=== PATIENT | female | born 1955 | race African-American/Black ===

== ENCOUNTER 2016-03-29 11:24 | Day surgery (SDC) | payer MEDICARE, OTHER ==
[~2016-03-29] VITALS: Ht 170.2 cm; Wt 87.3 kg
[~2016-03-29 11:24] MED LIST: AMLO1CAP33 PO; AMLO5TAB4 PO; DOCU-144 PO; ESOM40CA PO; IBUP800T25 PO; MIRT15TA5 PO
[2016-03-29 12:03] VITALS: Ht 170.2 cm; Wt 87.3 kg
[2016-03-29] MEDS ORDERED: VENTOLIN (12:13)
[2016-03-29] MEDS ORDERED: PRILOSEC (12:13)
[2016-03-29] MEDS ORDERED: FENTAnyl 50 MCG/ML VIAL ONE (12:22)
[2016-03-29] MEDS ORDERED: PROPOFOL 20 ML ONE (12:22)
[2016-03-29] MEDS ORDERED: MIDAZOLAM 1 MG/ML 2 ML INJ ONE (12:22)
[2016-03-29 12:28] VITALS: BP 134/92; PULSE 72; RESP 18
[2016-03-29 13:20] VITALS: BP 140/84; PULSE 73; RESP 20
--- NOTE | 2016-03-29 13:38 | GILP ---
DATE OF PROCEDURE: NAME OF PROCEDURE: Esophagogastroduodenoscopy and biopsy. SURGEON: Marilou Au MD PREOPERATIVE DIAGNOSIS: Abdominal pain. POSTOPERATIVE DIAGNOSES 1. Gastritis with erosions. 2. Gastric mucosal biopsies were taken for Helicobacter pylori test. INDICATION FOR THE PROCEDURE: Ms. Beth Diaz is a 61-year-old female patient who was complaining of upper abdominal pain, not responding to therapy. The patient was scheduled for endoscopic exam[facility] for further evaluation. The procedure and possible complications are well explained to the patient, she understood and conse nted to the procedure. DESCRIPTION OF PROCEDURE: Under the influence of anesthesia, the gastroscope was carefully introduc ed into the esophagus and under direct vision, it was advanced to the stomach and through the pyloru s into the duodenal bulb and descending duodenum. FINDINGS: ESOPHAGUS: The mucosa was normal. STOMACH: The patient had gastritis with erosions. Gastric mucosal biopsies were taken for H. pylor i test. DUODENUM: Normal. She tolerated the procedure very well and there was no complication from the procedure. At the end of the procedures, she was awake with stable vital signs and she was discharged home to the care of her family. IMPRESSION: 1. Gastritis with erosions. 2. Gastric mucosal biopsies were taken for Helicobacter pylori test. PLAN: 1. Continue omeprazole. 2. Add Zantac 300 mg p.o. at bedtime. 3. Await H. pylori test report. Dictated By: MARILOU ANDERSON/CARRINGTON Conf#: [id number] DID#: [id number]
== END 2016-03-29 13:24 | disposition home or self-care (01) ==
LOC: GIL 11:24
PROVIDERS: ATTEND Internal Medicine Gastroenterology
DX: K29.60 Other gastritis without bleeding (principal)
CPT/HCPCS: 43239; 87081; J2250; J3010

== ENCOUNTER → 2017-05-28 | Outpatient (CLI) | END | disposition home or self-care (01) ==

== ENCOUNTER → 2017-08-27 | Outpatient (CLI) | END | disposition home or self-care (01) ==